=== PATIENT | male | born 1965 | race Caucasian/White ===

== ENCOUNTER 2019-01-03 13:27 | Emergency (ER) | payer BC ==
[~2019-01-03] VITALS: Ht 175.3 cm; Wt 81.8 kg
[2019-01-03 13:30] VITALS: Ht 175.3 cm; Wt 81.8 kg
[2019-01-03] MEDS ORDERED: MEDROL DOSE PACK4 MG PO (15:15)
[2019-01-03] MEDS ORDERED: CYCLOBENZAPRINE10 MG PO (15:15)
[2019-01-03] MEDS ORDERED: ULTRAM50 MG PO (15:15)
[2019-01-03 15:52] VITALS: BP 175/104
== END 2019-01-03 15:52 | disposition home or self-care (01) ==
LOC: D.ER 13:27
DX: S20.211A Contusion of right front wall of thorax, initial encounter (principal); W01.0XXA Fall on same level from slipping, tripping and stumbling without subsequent striking against object, initial encounter; Y93.89 Activity, other specified; Y92.010 Kitchen of single-family (private) house as the place of occurrence of the external cause